=== PATIENT | male | born 1965 | race Two or more races ===

== ENCOUNTER 2019-08-03 08:35 | Observation (INO) | payer OTHER ==
[~2019-08-03] VITALS: Ht 195.6 cm; Wt 119.3 kg
[2019-08-03] MEDS ORDERED: PRAV20TA2 PO (08:58)
--- NOTE | 2019-08-03 09:04 | NUR ---
PT AMBULATED BACK TO ROOM WITH A SMOOTH AND STEADY GAIT, CHANGED INTO GOWN, RESTING ON GURNEY, NAD, RESP WNL, P/W, SLIGHTLY DIAPHORETIC, FCS NO SOB. CALL LIGHT ON LAP, WCTM. WAITING FOR PROVIDER HERIBERTO
--- NOTE | 2019-08-03 10:03 | NUR ---
PT VSS, NAD, RESP WNL, P/W/SLIGHTLY DIAPHORETIC, FCS NO SOB, DENIES ADDITIONAL NEEDS AT THIS TIME, CALL LIGHT ON LAP, WATCHING TV, WAITING FOR LAB RESULTS. WCTM.
[2019-08-03 10:22] LABS: BASOPHILS # (AUTO) 0.05 x10^3/uL (0-0.1); BASOPHILS % (AUTO) 1 % (0-1); EOSINOPHILS # (AUTO) 0.51 x10^3/uL (0-0.4); EOSINOPHILS % (AUTO) 7 % (1-7); LYMPHOCYTES # (AUTO) 1.56 x10^3/uL (1-3.4); LYMPHOCYTES % (AUTO) 20 % (22-44); MD NO; MEAN CORPUSCULAR HEMOGLOBIN 32.5 pg (27.5-34.5); MEAN CORPUSCULAR HGB CONC 33.7 g/dL (33.2-36.2); MEAN CORPUSCULAR VOLUME 96.2 fL (81-97); MEAN PLATELET VOLUME 9.3 fL (7.4-10.4); MONOCYTES # (AUTO) 0.52 x10^3/uL (0.2-0.8); MONOCYTES % (AUTO) 7 % (2-9); NEUTROPHILS # (AUTO) 5.08 x10^3/uL (1.8-6.8); NEUTROPHILS % (AUTO) 66 % (42-75); PLATELET COUNT 177 x10^3/uL (130-400); RED BLOOD COUNT 4.82 x10^6/uL (4.38-5.82); RED CELL DISTRIBUTION WIDTH 13.7 % (9.4-14.8)
[2019-08-03 10:32] LABS: ALBUMIN 3.5 g/dL (3.4-5.0); ANION GAP 7 mmol/L (5-15); CALCIUM 8.9 mg/dL (8.5-10.1); CHLORIDE 109 mmol/L (98-107); CREATININE 0.82 mg/dL (0.7-1.3)
--- NOTE | 2019-08-03 11:00 | NUR ---
pt resting in [place], no change in condition, call light on lap, WCTM. waiting on admit bed.
[2019-08-03] MEDS ORDERED: LABETALOL 5MG/ML, 20ML IVPush PRN (11:30)
[2019-08-03] MEDS ORDERED: ACETAMINOPHEN 325 MG TABLET PO PRN (11:30)
--- NOTE | 2019-08-03 12:21 | NUR ---
pt resting in gurney, NAD, RESP WNL, FCS no SOB, P/W/D, VSS, denies additional needs at this time, call light on lap, waiting for admit bed. WCTM. urinal emptied.
[2019-08-03 12:36] LABS: TROPONIN I < 0.015 ng/mL (0.000-0.045)
--- NOTE | 2019-08-03 13:03 | NUR ---
Pt resting in [place], watching TV, no change in condition, waiting on admi bed, WCTM.
[2019-08-03] MEDS ORDERED: ENOXAPARIN 40 MG/0.4 ML ONE (13:05)
[2019-08-03] MEDS: ENOXAPARIN 40 MG/0.4 ML SQ SCH (13:16)
--- NOTE | 2019-08-03 14:01 | NUR ---
pt resting in gurney, eyes open, watching television, no change in condition, denies additional needs at this time. WCTM. waiting on admit bed
--- NOTE | 2019-08-03 16:15 | NUR ---
LATE ENTRY: PT GIVEN MEAL TRAY, NO CHANGE IN CONDITION, NAD, DENIES ADDITIONAL NEEDS AT THIS TIME. WCTM
[2019-08-03 17:17] LABS: TROPONIN I < 0.015 ng/mL (0.000-0.045)
--- NOTE | 2019-08-03 17:24 | NUR ---
PT GIVEN PILLOW FOR COMFORT, NO CHANGE IN CONDITION, NAD, DENIES ADDITIONAL NEEDS AT THIS TIME. WCTM
--- NOTE | 2019-08-03 17:45 | NUR ---
REPORT GIVEN TO JULISSA AU. PT RTG WHEN BED IS IN ROOM. PT CONDITION UNCHANGED, VSS, WCTM UNTIL TRANSFER.
--- NOTE | 2019-08-03 18:59 | NUR ---
REPORT GIVEN TO [employer]MA[employer]PA[employer] SPECIALIST JEAN, CARE TRANSFERRED AT THIS TIME
[2019-08-03 19:54] VITALS: BP 127/77
[2019-08-03] MEDS ORDERED: PRAVASTATIN 20 MG TABLET PO SCH (21:00)
[2019-08-03 23:35] LABS: TROPONIN I < 0.015 ng/mL (0.000-0.045)
[2019-08-04 00:10] VITALS: BP 126/80
[2019-08-04 06:11] LABS: BASOPHILS # (AUTO) 0.05 x10^3/uL (0-0.1); BASOPHILS % (AUTO) 1 % (0-1); EOSINOPHILS # (AUTO) 0.65 x10^3/uL (0-0.4); EOSINOPHILS % (AUTO) 10 % (1-7); LYMPHOCYTES # (AUTO) 2.08 x10^3/uL (1-3.4); LYMPHOCYTES % (AUTO) 32 % (22-44); MD NO; MEAN CORPUSCULAR HGB CONC 33.1 g/dL (33.2-36.2); MEAN CORPUSCULAR VOLUME 96.8 fL (81-97); MEAN PLATELET VOLUME 9.3 fL (7.4-10.4); MONOCYTES # (AUTO) 0.46 x10^3/uL (0.2-0.8); MONOCYTES % (AUTO) 7 % (2-9); NEUTROPHILS # (AUTO) 3.26 x10^3/uL (1.8-6.8); NEUTROPHILS % (AUTO) 50 % (42-75); PLATELET COUNT 163 x10^3/uL (130-400); RED BLOOD COUNT 4.67 x10^6/uL (4.38-5.82); RED CELL DISTRIBUTION WIDTH 14.1 % (9.4-14.8)
[2019-08-04 06:22] LABS: ALANINE AMINOTRANSFERASE 38 U/L (12-78); ALBUMIN 3.3 g/dL (3.4-5.0); ANION GAP 6 mmol/L (5-15); CALCIUM 8.5 mg/dL (8.5-10.1); CHLORIDE 107 mmol/L (98-107); CREATININE 0.95 mg/dL (0.7-1.3)
[2019-08-04 06:32] LABS: ALKALINE PHOSPHATASE 52 U/L (45-117); BILIRUBIN,TOTAL 0.6 mg/dL (0.2-1.0); TOTAL PROTEIN 7.7 g/dL (6.4-8.2)
[2019-08-04 08:00] VITALS: BP 127/79
[2019-08-04] MEDS: ENOXAPARIN 40 MG/0.4 ML SQ SCH (11:57)
[2019-08-04 13:40] VITALS: BP 131/70
== END 2019-08-04 18:21 | disposition home or self-care (01) ==
LOC: ED 09:18 → INTOOBSV 10:36 → UNDOADMOB 10:36 → EDIP 10:36 → 4NW 19:09
PROVIDERS: ADMIT Internal Medicine; ATTEND Hospitalist
DX: Z03.818 Encounter for observation for suspected exposure to other biological agents ruled out (principal); R00.2 Palpitations; R42 Dizziness and giddiness; E78.5 Hyperlipidemia, unspecified; Z79.899 Other long term (current) drug therapy; Z87.891 Personal history of nicotine dependence
CPT/HCPCS: 36415; 71045; 80048; 80053; 82040; 83735; 84100; 84443; 84484; 85025; 85379; 93005; 93306; 93356; 93880; 96372; 99285; G0378; J1650; U0001

== ENCOUNTER → 2019-12-15 | Outpatient (CLI) | payer OTHER ==
[~2019-12-15] MED LIST: PRAV20TA2 PO
== END | disposition home or self-care (01) ==
LOC: CFH 15:34
PROVIDERS: ATTEND Internal Medicine Cardiovascular Disease
DX: Z13.6 Encounter for screening for cardiovascular disorders (principal); I25.10 Atherosclerotic heart disease of native coronary artery without angina pectoris; I10 Essential (primary) hypertension; Z82.49 Family history of ischemic heart disease and other diseases of the circulatory system
CPT/HCPCS: 75571